=== PATIENT | female | born 1985 | race Caucasian/White ===

== ENCOUNTER → 2016-10-28 | Outpatient (REF) | payer OTHER ==
[2016-10-28 13:39] LABS: MEAN CORPUSCULAR HEMOGLOBIN 31.2 pg (27.0-33.0); MEAN CORPUSCULAR HGB CONC 33.5 g/dl (32.0-36.5); RED CELL DISTRIBUTION WIDTH 13.2 % (11.5-14.5); WHITE BLOOD COUNT 5.4 K/mm3 (4.0-10.0)
[2016-10-28 14:11] LABS: HCG, SERUM QUANTITATIVE 39430 MIU/ML
== END ==
LOC: M LAB REF 13:22
PROVIDERS: ATTEND Advanced Practice Midwife
DX: O36.80X0 Pregnancy with inconclusive fetal viability, not applicable or unspecified (principal)

== ENCOUNTER → 2017-03-08 | Outpatient (CLI) | payer OTHER ==
[2017-03-08 10:45] LABS: MEAN CORPUSCULAR HEMOGLOBIN 30.7 pg (27.0-33.0); MEAN CORPUSCULAR HGB CONC 33.4 g/dl (32.0-36.5); MEAN CORPUSCULAR VOLUME 91.9 fl (80.0-96.0); RED CELL DISTRIBUTION WIDTH 13.2 % (11.5-14.5); WHITE BLOOD COUNT 8.4 10^3/uL (4.0-10.0)
== END ==
LOC: M LAB 08:22
PROVIDERS: ATTEND Advanced Practice Midwife
DX: Z34.82 Encounter for supervision of other normal pregnancy, second trimester (principal)

== ENCOUNTER → 2017-05-19 | Outpatient (REF) | payer OTHER ==
[~2017-05-19] MED LIST: IBUP-1114 PO; PRENTAB9 PO
== END ==
LOC: M LAB REF 12:53
PROVIDERS: ATTEND Advanced Practice Midwife
DX: Z34.83 Encounter for supervision of other normal pregnancy, third trimester (principal)

== ENCOUNTER 2017-05-21 06:25 | Inpatient (IN) | payer OTHER ==
[~2017-05-21] VITALS: Ht 167.6 cm; Wt 107.5 kg
[2017-05-21 06:42] VITALS: BP 132/78
--- NOTE | 2017-05-21 08:35 | REP ---
Obstetric ultrasound, stat and request for decreased movement: There are no comparison studies. Based on LMP gestational age is 36 weeks 4 days with an NADIYA of 06/14/2017. There is a single intrauterine gestation in a vertex presentation. heart rate is 160 beats per minute. Amniotic fluid volume is subjectively severe oligohydramnios, near anhydramnios. The the amniotic fluid index is 1.2. (7.6 - 24.6). biophysical profile: Breathing 2 Movement 2 Tone 3 Amniotic fluid volume 2 Total 11/19 half Umbilical artery Doppler assessment: SD ratio is 1.89. This is 1.76 - 2.76) Resistive index 0.47 grams 0.59 - 0.75) Diastolic flow velocity 20 0.7 cm/sec. Impression: Severe oligohydramnios. BPP 11/19. Signed by Uri Sanchez MD 05/21/2017 08:27 A
[2017-05-21 08:59] VITALS: BP 124/72
[2017-05-21 09:01] LABS: MEAN CORPUSCULAR HEMOGLOBIN 30.3 pg (27.0-33.0); MEAN CORPUSCULAR HGB CONC 33.5 g/dl (32.0-36.5); MEAN CORPUSCULAR VOLUME 90.5 fl (80.0-96.0); PLATELET COUNT, AUTOMATED 226 10^3/uL (150-450)
[2017-05-21] MEDS ORDERED: LACTATED RINGER'S 1000 ML IV STA (09:06)
[2017-05-21 09:26] LABS: ALT/SGPT 22 U/L (12-78); AST/SGOT 18 U/L (7-37); BILIRUBIN,TOTAL 0.1 MG/DL (0.2-1.0); CREATININE FOR GFR 0.46 MG/DL (0.55-1.02); GLOMERULAR FILTRATION RATE > 60.0 (>60); URIC ACID 3.2 MG/DL (2.6-6.0)
[2017-05-21] MEDS ORDERED: AMPICILLIN SOD 2 GM in APPROPRIATE DILUENT 20 ML IV ONE (09:30)
[2017-05-21] MEDS: BETAMETHASONE SOLUSPAN 6MG/ML INJ 5ML (J0702) IM SCH (09:30)
[2017-05-21] MEDS: LR 1,000 ML IV SCH ×2 (10:40→20:00)
[2017-05-21 10:44] VITALS: BP 112/67
[2017-05-21 11:34] VITALS: BP 113/61
[2017-05-21] MEDS ORDERED: AMPICILLIN 1 GM VIAL As Ordered ONE (15:01)
[2017-05-21] MEDS: AMPICILLIN SOD 1 GM in APPROPRIATE DILUENT 10 ML IV SCH ×3 (15:02→22:47)
[2017-05-21 22:48] VITALS: BP 109/63
[2017-05-22] VITALS (8 sets, daily range): BP systolic 108–126; BP diastolic 55–68
[2017-05-22] MEDS: LR 1,000 ML IV SCH (02:45)
[2017-05-22] MEDS: AMPICILLIN SOD 1 GM in APPROPRIATE DILUENT 10 ML IV SCH ×2 (03:00→06:59)
[2017-05-22] MEDS: BETAMETHASONE SOLUSPAN 6MG/ML INJ 5ML (J0702) IM SCH (11:28)
--- NOTE | 2017-05-22 12:04 | HPE ---
DATE OF ADMISSION: 05/21/2017 Lucy is a 32-year-old female, 2, para 0-0-1-0, with an expected date of confinement (EDC) of 06/14/2017, estimated gestational age (EGA) 36 weeks and 2 days, who presented to labor and delivery after complaining of decreased movement. She had an ultrasound which shows a 6/8 biophysical profile with -2 for the PEDRO LUIS. Her PEDRO LUIS was 1.2. Upon admission, no bleeding, no leakage of fluid. Good movement in labor and delivery. Her tracing was reviewed which was a category one tracing. Her record reviewed, essentially unremarkable. The patient did have history of low fluid with no evidence of rupture of membranes. LABS: Blood type is A negative. Rubella immune. Hepatitis negative. HIV negative. GC and chlamydia negative. 1-hour sugar testing was done which was within normal limits. The patient recently had her GBS culture which is presumably positive. PAST MEDICAL HISTORY: Denies. PAST SURGICAL HISTORY: Denies. SOCIAL HISTORY: Denies any alcohol, drug or cigarette smoking. The patient is . MEDICATIONS: vitamin. ALLERGIES: No known drug allergies; however, patient reported a possible allergy to penicillin. PHYSICAL EXAMINATION ON ADMISSION: Obese female in no acute distress. Abdomen: Soft, nontender, nondistended. Extremities: No clubbing, cyanosis or edema. Vaginal Exam: No evidence of rupture of membrane. Nitrazine negative. Cervix is thick, closed and posterior. Fetus in vertex position. NST reviewed. Category one tracing. No contractions. Her ultrasound is also reviewed. Biophysical profile 6/8, -2 for PEDRO LUIS, which her PEDRO LUIS is 1.2. ASSESSMENT: 1. Intrauterine at 36 weeks gestation. No evidence of rupture of membrane. 2. Oligohydramnios with an PEDRO LUIS of 1.2. PLAN: The patient will be admitted to labor and delivery for IV hydration, continuous monitoring. Betamethasone will be initiated for lung maturity. Given a positive GBS, ampicillin will be started for GBS prophylaxis. We will monitor the patient for 24-48 hours of steroids, then repeat the ultrasound in a couple of days. If the fluid remains low, she will be induced. The induction process was discussed with the patient in great detail as well as the risk and benefits of the induction. The patient will remain on labor and delivery until the repeat ultrasound and possible induction.
[2017-05-23] VITALS (7 sets, daily range): BP systolic 108–145; BP diastolic 56–83
[2017-05-23] MEDS: LR 1,000 ML IV SCH ×4 (08:17→18:00)
--- NOTE | 2017-05-23 09:55 | IPNPDOC ---
Text Note Date of Service The patient was seen on 05/23/17. NOTE BPP today 07/22 (breathing only) PEDRO LUIS 1.5 FH remains Cat I, no UC Dr Chahal updated. No change in plan VS,Fishbone, I+O VS, Fishbone, I+O Vital Signs Date Time Temp Pulse Resp B/P (MAP) Pulse Ox O2 Delivery O2 Flow Rate FiO2 05/23/17 07:55 98.8 65 16 145/65 (91) I&O- Last 24 Hours up to 6 AM 05/24/17 06:00 Intake Total 1500 ml Balance 1500 ml Tatiana Liang CNM May 23, 2017 09:55
--- NOTE | 2017-05-23 09:57 | REP ---
LIMITED OB ULTRASOUND: REASON: Followup amniotic fluid. Multiple ultrasonographic images of the gravid uterus show a single living intrauterine gestation in the cephalic presentation. Doppler interrogation of the heart shows a heart rate of 144 beats per minute. The calculated amniotic fluid index is 1.5 which is below the normal range of 7.5 - 24.5 for 36 week 6 day gestation. Doppler interrogation of the umbilical artery shows an AB ratio of 2.47 which is within the normal range. The placenta is anterior and not low lying. biophysical profile score is 2 for breathing, 0 for movement, 0 for tone and 0 for amniotic fluid volume giving an subtotal of 2 out of 8. IMPRESSION: Limited OB ultrasound as described above showing oligohydramnios with a 2 out of 8 biophysical profile. Signed by Bryan Graham DO 05/23/2017 10:28 A
[2017-05-23 12:32] LABS: BASO % 0.1 % (0.0-1.0); IMMATURE GRANULOCYTE % 0.7 % (0-0); LYMPH % 16.6 % (24.0-44.0); MEAN CORPUSCULAR HEMOGLOBIN 30.3 pg (27.0-33.0); MEAN CORPUSCULAR HGB CONC 33.3 g/dl (32.0-36.5); MEAN CORPUSCULAR VOLUME 90.8 fl (80.0-96.0); MONO % 8.7 % (0.0-5.0); NEUTROPHILS # 8.8 10^3/uL (1.8-7.7); NEUTROPHILS % 73.9 % (36.0-66.0); PLATELET COUNT, AUTOMATED 251 10^3/uL (150-450); RED CELL DISTRIBUTION WIDTH 13.2 % (11.5-14.5); WHITE BLOOD COUNT 11.8 10^3/uL (4.0-10.0)
[2017-05-23 13:16] LABS: ALT/SGPT 35 U/L (12-78); AST/SGOT 26 U/L (7-37); BILIRUBIN,TOTAL 0.2 MG/DL (0.2-1.0); GLOMERULAR FILTRATION RATE > 60.0 (>60); URIC ACID 3.2 MG/DL (2.6-6.0)
[2017-05-23] MEDS ORDERED: LACTATED RINGER'S 1000 ML IV STA (13:50)
[2017-05-23] MEDS ORDERED: LR 1,000 ML IV SCH (13:50)
[2017-05-23] MEDS ORDERED: AZITHROMYCIN INJ 500 MG, VIAL MATE ADAPTER 1 EACH in D5W 250 ML IV ONE (14:00)
[2017-05-23] MEDS ORDERED: BICITRA 30ML SOLN UDC PO ONE (14:00)
[2017-05-23] MEDS ORDERED: METHYLERGONOVINE MALEATE 0.2 MG TAB PO PRN (16:45)
[2017-05-23] MEDS ORDERED: MEASLES,MUMPS,RUBELLA VACCINE INJ (MMR-II) (90707) SC SCH (16:45)
[2017-05-23] MEDS ORDERED: NORCO, ANEXSIA 5/325MG TABLET (HYDROcodone/ACETAMINOPHEN) PO PRN (16:45)
[2017-05-23] MEDS ORDERED: ONDANSETRON 4MG/2ML VIAL (J2405) IV PRN ×2 (16:45→18:00)
[2017-05-23] MEDS ORDERED: MOM 30ML SUSPENSION UDC PO PRN (16:45)
[2017-05-23] MEDS ORDERED: RHOGAM 300 MCG (1500 IU) INJ (J2790) IM SCH (16:45)
[2017-05-23 17:14] LABS: CORD GAS ABE V 0.4; CORD GAS HCO3 V 26.2 MEQ/L; CORD GAS O2 SAT V 54.7 %; CORD GAS PCO2 V 46.2 mmHg; CORD GAS PH V 7.371 UNITS; CORD GAS PO2 V 22.6 mmHg; CORD GAS SBC V 23.8 MEQ/L; CORD GAS TCO2 V 27.6 MEQ/L
[2017-05-23 17:15] LABS: CORD GAS ABE A 2.3; CORD GAS HCO3 A 30.1 MEQ/L; CORD GAS O2 SAT A 45.6 %; CORD GAS PCO2 A 60.4 mmHg; CORD GAS PH A 7.316 UNITS; CORD GAS SBC A 25.1 MEQ/L
[2017-05-23] MEDS ORDERED: OXYTOCIN INJ 10 UNITS/ML VIAL (J2590) As Ordered ONE (17:28)
[2017-05-23] MEDS ORDERED: LIDOCAINE 2% INJ 100 MG/5 ML SDV (FOR ANES.) As Ordered ONE (17:28)
[2017-05-23] MEDS ORDERED: KETOROLAC 60 MG/2 ML VIAL (J1885) As Ordered ONE (17:28)
[2017-05-23] MEDS ORDERED: MORPHINE PRES-FREE INJ 10 MG/10 ML VIAL (J2274) As Ordered ONE (17:28)
[2017-05-23] MEDS ORDERED: ONDANSETRON 4MG/2ML VIAL (J2405) As Ordered ONE (17:28)
[2017-05-23] MEDS ORDERED: PERCOCET 5MG/325MG TAB PO PRN (18:00)
[2017-05-23] MEDS ORDERED: MEPERIDINE INJ 25 MG/ML VIAL (J2175) IV PRN (18:00)
[2017-05-23] MEDS ORDERED: fentaNYL 100 MCG/2 ML INJECTION (J3010) IV PRN (18:00)
[2017-05-23] MEDS ORDERED: METOCLOPRAMIDE INJ 10MG/2ML VIAL (J2765) IV PRN (18:00)
[2017-05-23] MEDS: DOCUSATE SODIUM 100 MG CAP PO SCH (20:20)
[2017-05-24] MEDS: NORCO, ANEXSIA 5/325MG TABLET (HYDROcodone/ACETAMINOPHEN) PO PRN ×4 (00:14→21:21)
[2017-05-24] MEDS: LR 1,000 ML IV SCH (00:39)
[2017-05-24 02:15] VITALS: BP 106/61
[2017-05-24 05:57] VITALS: BP 111/62
[2017-05-24 07:03] LABS: MEAN CORPUSCULAR HEMOGLOBIN 30.5 pg (27.0-33.0); MEAN CORPUSCULAR HGB CONC 33.6 g/dl (32.0-36.5); PLATELET COUNT, AUTOMATED 194 10^3/uL (150-450); RED CELL DISTRIBUTION WIDTH 13.1 % (11.5-14.5); WHITE BLOOD COUNT 10.3 10^3/uL (4.0-10.0)
[2017-05-24] MEDS: PRENATAL VITAMINS CHEWABLE TABLET PO SCH (07:33)
[2017-05-24] MEDS: IBUPROFEN 800 MG TAB PO SCH ×3 (07:33→16:42)
[2017-05-24] MEDS: DOCUSATE SODIUM 100 MG CAP PO SCH ×2 (07:33→21:21)
--- NOTE | 2017-05-24 11:56 | RO ---
DATE OF PROCEDURE: 05/23/2017 Lucy is a 32-year-old female 2, para 0-0-1-0 who is admitted at 36-4/7 weeks gestation with oligohydramnios and decreased movement. Upon further evaluation after her cervix complete, her biophysical profile (BPP) was found to be 2 out of 8 minus 2 for tone, minus 2 for movement, and she was minus 2 for fluid. At this point the option was given to the patient to proceed with induction or proceed with a primary section. The risks and benefit of both procedures were explained in great detail. The patient her decided to proceed with a primary section. PREOPERATIVE DIAGNOSES: 1. Intrauterine at 36-6/7 weeks gestation. 2. Severe oligohydramnios. 3. Biophysical profile 07/22. 4. Parents desire primary section. POSTOPERATIVE DIAGNOSES 1. Intrauterine at 36-6/7 weeks gestation. 2. Severe oligohydramnios. 3. Biophysical profile 07/22. 4. Parents desire primary section. PROCEDURE: Primary low transverse section. SURGEON: Dr. Henry Samayoa. FEATHER SEPARATOR: Katelynn ANESTHESIA: Spinal. COMPLICATIONS: None. ESTIMATED BLOOD LOSS: 500 mL. FINDINGS: Live female in occiput transverse position. Apgars 9 and 9, weight 5 pounds 11 ounces. Normal appearing anterior placenta with extremely thick cord. DESCRIPTION OF PROCEDURE: After obtaining informed consent, the patient was taken to the operating room where spinal anesthetic was found to be adequate. She was then draped and prepped in the usual sterile fashion in the supine position. At this point a Pfannenstiel incision was made with a first knife. This was carried down to the fascia. Fascia was incised in a midline fashion and carried through laterally. Superior aspect of the fascia were grasped with the Bruce clamps, tented off and dissected off the rectus muscles sharply. The inferior aspect was dissected off in a similar fashion. Rectus muscles in a midline fashion. Perineum identified. Peritoneal cavity entered bluntly. Superior and inferior dissection of the peritoneum was then done with good visualization of the bladder. At this point a Mobius skin retractor was placed, a low-transverse uterine incision was made, infant was delivered in atraumatic fashion. Nose and mouth bulb suctioned, cord doubly clamped and cut and was handed over to the waiting warmer. Cord blood and cord gas were sent. Placenta removed manually. Uterus cleared of all clot and debris and the uterine incision was then repaired in two separate layers of 0 Vicryl sutures. Pelvis copiously irrigated with normal saline and suctioned out. Attention turned to the peritoneum, which was closed in a running fashion using #2-0 Vicryl. Fascia closed in two separate segment of 0 Vicryl sutures and the skin was reapproximated in subcuticular fashion using #3-0 Vicryl on a Jared. Steri-Strips placed. The patient tolerated procedure well. She was then transferred to recovery room in stable condition.
[2017-05-24 17:53] VITALS: BP 121/80
[2017-05-25] MEDS: IBUPROFEN 800 MG TAB PO SCH ×2 (01:00→08:28)
[2017-05-25 06:25] VITALS: BP 131/73
[2017-05-25] MEDS: DOCUSATE SODIUM 100 MG CAP PO SCH (07:58)
[2017-05-25] MEDS: PRENATAL VITAMINS CHEWABLE TABLET PO SCH (07:59)
[2017-05-25] MEDS ORDERED: IBUP-1114 PO (11:58)
[2017-05-25] MEDS ORDERED: PRENTAB9 PO (11:58)
== END 2017-05-25 12:40 | disposition home or self-care (01) | DRG 765 ==
LOC: M LDO 06:25 → M LDI 08:04 → M OBS 05-23 18:34
PROVIDERS: ADMIT Advanced Practice Midwife; ATTEND Advanced Practice Midwife
PROC: 10D00Z1 Extraction of Products of Conception, Low, Open Approach (ICD-10-PCS; principal; 2017-05-23 16:55)
DX: O41.03X0 Oligohydramnios, third trimester, not applicable or unspecified (principal); O60.14X0 Preterm labor third trimester with preterm delivery third trimester, not applicable or unspecified; Z37.0 Single live birth; O99.820 Streptococcus B carrier state complicating pregnancy; O36.8130 Decreased fetal movements, third trimester, not applicable or unspecified; Z3A.36 36 weeks gestation of pregnancy